=== PATIENT | female | born 1940 | race Caucasian/White ===

== ENCOUNTER 2018-11-14 12:24 | Emergency (ER) | payer MEDICARE ==
[2018-11-14 12:36] VITALS: BP 170/93; PULSE 86; RESP 16; TEMP 97.9
[2018-11-14] MEDS ORDERED: LORazepam 2 MG/ML INJ IV STA ×2 (13:21)
--- NOTE | 2018-11-14 13:43 | ED ---
General Adult HPI - General Chief complaint: Headache Stated complaint: HEADACHE RT WORSHIP Time Seen by Provider: 11/14/18 12:35 Source: patient, RN notes reviewed Mode of arrival: wheelchair Limitations: no limitations - History of Present Illness Initial comments: This is an 78-year-old female presents to the emergency department stating that she's had multiple vascular headaches in the past. Patient states today she had a right-sided headache that last between one to 2 seconds and then there would be a period of about 2 minutes that she didn't have a headache and then the 2 second pain would return she states is when on for a couple of hours. Patient states she had no numbness no weakness she denies any slurred speech or visual problems. Patient states currently she has got no headache and states that the headache has been gone for 30 minutes. Patient denies any nausea vomiting per patient denies any fever chills. Patient denies any tenderness to the scalp. Patient denies any chest pain difficulty breathing shortest breath. Patient denies any recent nausea vomiting diarrhea. - Related Data Allergies Allergy/AdvReac Type Severity Reaction Status Date / Time No Known Allergies Allergy Verified 11/14/18 12:36 Review of Systems ROS Statement: Those systems with pertinent positive or pertinent negative responses have been documented in the HPI. ROS Other: All systems not noted in ROS Statement are negative. Past Medical History Additional Past Medical History / Comment(s): Neuropathy History of Any Multi-Drug Resistant Organisms: None Reported Past Surgical History: Joint Replacement Past Psychological History: No Psychological Hx Reported Smoking Status: Never smoker Past Alcohol Use History: Daily Past Drug Use History: None Reported General Exam - General Exam Comments Initial Comments: GENERAL: Patient is well-developed and well-nourished. Patient is nontoxic and well- hydrated and is in no acute distress. ENT: Neck is soft and supple. No temporal artery tenderness EYES: The sclera were anicteric and conjunctiva were pink and moist. Extraocular movements were intact and pupils were equal round and reactive to light. Eyelids were unremarkable. SKIN: Skin is clear with no lesions or rashes and otherwise unremarkable. NEUROLOGIC: Patient is alert and oriented x3. Cranial nerves II through XII are grossly intact. Motor and sensory are also intact. Normal speech, volume and content. Symmetrical smile. Cerebellar exam grossly intact. MUSCULOSKELETAL: Normal extremities with adequate strength and full range of motion. PSYCHIATRIC: Normal psychiatric evaluation. Limitations: no limitations Course Vital Signs 11/14/18 12:31 Temperature 97.9 F Pulse Rate 86 Respiratory 16 Rate Blood Pressure 170/93 O2 Sat by Pulse 97 Oximetry Disposition Clinical Impression: Headache Disposition: HOME SELF-CARE Condition: Good Instructions (If sedation given, give patient instructions): Acute Headache (ED) Is patient prescribed a controlled substance at d/c from ED?: No Referrals: Yayo Hewitt MD [Primary Care Provider] - 1-2 days Time of Disposition: 13:43
== END 2018-11-14 13:57 | disposition home or self-care (01) ==
LOC: EC 12:24
DX: R51 Headache (principal); Z96.698 Presence of other orthopedic joint implants
CPT/HCPCS: 99283

== ENCOUNTER 2019-02-07 12:33 | Emergency (ER) | payer MEDICARE ==
[2019-02-07 13:00] VITALS: RESP 18
--- NOTE | 2019-02-07 13:24 | ED ---
General Adult HPI - General Chief complaint: Recheck/Abnormal Lab/Rx Stated complaint: Not feeling good Time Seen by Provider: 02/07/19 13:05 Source: patient, RN notes reviewed, old records reviewed Mode of arrival: wheelchair Limitations: no limitations - History of Present Illness Initial comments: 78-year-old female presents for evaluation of right neck pain. Pain began while patient was riding her stationary bike. She states she typically rides despite several days. Week without any chest pain or neck pain. She has no history of CAD. Pain was not associated with any injury or trauma. She states this was approximately 2 minutes after initiating exercise. Pain has resolved with rest. This was right neck pain with no central chest pain. No vomiting or diaphoresis. - Related Data Home Medications Medication Instructions Recorded Confirmed Aspirin EC [Ecotrin Low Dose] 81 mg PO DAILY 11/14/18 11/14/18 Hydrochlorothiazide [Hydrodiuril] 25 mg PO DAILY 11/14/18 11/14/18 Meclizine [Antivert] 25 mg PO TID PRN 11/14/18 11/14/18 Mometasone Furoate [Asmanex] 1 - 2 puff INHALATION RT-BID 11/14/18 11/14/18 Pramipexole [Mirapex] 0.25 mg PO HS 11/14/18 11/14/18 Tiotropium 18 Mcg/Puff [Spiriva] 1 puff INHALATION RT-DAILY 11/14/18 11/14/18 Vitamin B Complex 1 cap PO DAILY 11/14/18 11/14/18 Allergies Allergy/AdvReac Type Severity Reaction Status Date / Time No Known Allergies Allergy Verified 02/07/19 12:54 Review of Systems ROS Statement: Those systems with pertinent positive or pertinent negative responses have been documented in the HPI. ROS Other: All systems not noted in ROS Statement are negative. Past Medical History Past Medical History: Hypertension Additional Past Medical History / Comment(s): Neuropathy History of Any Multi-Drug Resistant Organisms: None Reported Past Surgical History: Joint Replacement Past Psychological History: Anxiety Smoking Status: Never smoker Past Alcohol Use History: Daily Past Drug Use History: None Reported General Exam Limitations: no limitations General appearance: alert, in no apparent distress Head exam: Present: atraumatic, normocephalic Eye exam: Present: normal appearance, PERRL ENT exam: Present: normal exam Neck exam: Present: normal inspection, other (No external signs of trauma no signs of infection no muscle spasm or tenderness on exam). Absent: tenderness, meningismus Respiratory exam: Present: normal lung sounds bilaterally. Absent: respiratory distress, wheezes Cardiovascular Exam: Present: regular rate, normal rhythm GI/Abdominal exam: Present: soft. Absent: distended, tenderness, guarding Extremities exam: Present: normal inspection, normal capillary refill. Absent: pedal edema, calf tenderness Neurological exam: Present: alert, oriented X3, CN II-XII intact. Absent: motor sensory deficit Psychiatric exam: Present: normal affect, normal mood Skin exam: Present: warm, dry, intact. Absent: cyanosis, diaphoretic Course Vital Signs 02/07/19 12:55 Temperature 97.5 F L Pulse Rate 77 Respiratory 18 Rate Blood Pressure 154/80 O2 Sat by Pulse 97 Oximetry EKG Findings - EKG Comments: EKG Findings:: EKG: Sinus rhythm with PVC, LVH, no ST segment depression in the lateral precordial leads, rate of 80, AK interval 150, QRS duration 88, QTC 442, no ST segment elevation no old for comparison. Medical Decision Making - Medical Decision Making 78-year-old female with exertional right neck pain. No specific injury. Pain also resolved time my evaluation. I was concerned this may be an anginal equivalent in this 78-year-old female. This was with exertion while riding a stationary bike. EKG has some changes in the precordial leads however there is no old for comparison. There is no ST segment elevation. Laboratory testing reveals normal CBC, normal CMP, negative initial troponin. Did offer observation for this patient to rule out acute coronary syndrome. Patient prefers outpatient management. She was willing to receive a second troponin emergency department which was also negative at 3 hours. She will follow-up with her primary care physician. She will return with worsening or changing symptoms. - Lab Data Result diagrams: 02/07/19 13:23 02/07/19 13:23 Lab Results 02/07/19 02/07/19 02/07/19 Range/Units 13:23 13:23 13:23 WBC 4.3 (3.8-10.6) k/uL RBC 3.83 (3.80-5.40) m/uL Hgb 12.5 (11.4-16.0) gm/dL Hct 36.2 (34.0-46.0) % MCV 94.6 (80.0-100.0) fL MCH 32.7 (25.0-35.0) pg MCHC 34.6 (31.0-37.0) g/dL RDW 11.7 (11.5-15.5) % Plt Count 245 (150-450) k/uL Neutrophils % 57 % Lymphocytes % 29 % Monocytes % 7 % Eosinophils % 3 % Basophils % 2 % Neutrophils # 2.4 (1.3-7.7) k/uL Lymphocytes # 1.3 (1.0-4.8) k/uL Monocytes # 0.3 (0-1.0) k/uL Eosinophils # 0.1 (0-0.7) k/uL Basophils # 0.1 (0-0.2) k/uL PT 10.5 (9.0-12.0) sec INR 1.0 (<1.2) APTT 24.3 (22.0-30.0) sec Sodium 140 (137-145) mmol/L Potassium 3.4 L (3.5-5.1) mmol/L Chloride 101 (98-107) mmol/L Carbon Dioxide 29 (22-30) mmol/L Anion Gap 10 mmol/L BUN 17 (7-17) mg/dL Creatinine 0.89 (0.52-1.04) mg/dL Est GFR (CKD-EPI)AfAm 71 (>60 ml/min/1.73 sqM) Est GFR (CKD-EPI)NonAf 61 (>60 ml/min/1.73 sqM) Glucose 51 L (74-99) mg/dL POC Glucose (mg/dL) (75-99) mg/dL POC Glu Scouring Pads Supervisor ID Calcium 9.9 (8.4-10.2) mg/dL Magnesium 1.9 (1.6-2.3) mg/dL Total Bilirubin 0.3 (0.2-1.3) mg/dL AST 25 (14-36) U/L ALT 20 (9-52) U/L Alkaline Phosphatase 64 (38-126) U/L Troponin I (0.000-0.034) ng/mL Total Protein 7.4 (6.3-8.2) g/dL Albumin 4.6 (3.5-5.0) g/dL 02/07/19 02/07/19 02/07/19 Range/Units 13:23 14:14 14:44 WBC (3.8-10.6) k/uL RBC (3.80-5.40) m/uL Hgb (11.4-16.0) gm/dL Hct (34.0-46.0) % MCV (80.0-100.0) fL MCH (25.0-35.0) pg MCHC (31.0-37.0) g/dL RDW (11.5-15.5) % Plt Count (150-450) k/uL Neutrophils % % Lymphocytes % % Monocytes % % Eosinophils % % Basophils % % Neutrophils # (1.3-7.7) k/uL Lymphocytes # (1.0-4.8) k/uL Monocytes # (0-1.0) k/uL Eosinophils # (0-0.7) k/uL Basophils # (0-0.2) k/uL PT (9.0-12.0) sec INR (<1.2) APTT (22.0-30.0) sec Sodium (137-145) mmol/L Potassium (3.5-5.1) mmol/L Chloride (98-107) mmol/L Carbon Dioxide (22-30) mmol/L Anion Gap mmol/L BUN (7-17) mg/dL Creatinine (0.52-1.04) mg/dL Est GFR (CKD-EPI)AfAm (>60 ml/min/1.73 sqM) Est GFR (CKD-EPI)NonAf (>60 ml/min/1.73 sqM) Glucose (74-99) mg/dL POC Glucose (mg/dL) 77 86 (75-99) mg/dL POC Glu Scouring Pads Supervisor Caroline Rodriguez Nicole Calcium (8.4-10.2) mg/dL Magnesium (1.6-2.3) mg/dL Total Bilirubin (0.2-1.3) mg/dL AST (14-36) U/L ALT (9-52) U/L Alkaline Phosphatase (38-126) U/L Troponin I <0.012 (0.000-0.034) ng/mL Total Protein (6.3-8.2) g/dL Albumin (3.5-5.0) g/dL Disposition Clinical Impression: Cervical strain, acute Disposition: HOME SELF-CARE Condition: Good Instructions (If sedation given, give patient instructions): Cervical Strain (ED) Is patient prescribed a controlled substance at d/c from ED?: No Referrals: Tramaine Merritt MD [Primary Care Provider] - 1-2 days Time of Disposition: 16:49
[2019-02-07 13:34] LABS: Basophils # (A) 0.1 k/uL (0-0.2); Basophils % (A) 2 %; Eosinophils # (A) 0.1 k/uL (0-0.7); Eosinophils % (A) 3 %; HCT 36.2 % (34.0-46.0); HGB 12.5 gm/dL (11.4-16.0); Lymphocytes # (A) 1.3 k/uL (1.0-4.8); Lymphocytes % (A) 29 %; MCH 32.7 pg (25.0-35.0); MCHC 34.6 g/dL (31.0-37.0); MCV 94.6 fL (80.0-100.0); Mean Platelet Volume 6.5; Monocytes # (A) 0.3 k/uL (0-1.0); Monocytes % (A) 7 %; Neutrophils # (A) 2.4 k/uL (1.3-7.7); Neutrophils % (A) 57 %; Platelet Count 245 k/uL (150-450); RBC 3.83 m/uL (3.80-5.40); RDW 11.7 % (11.5-15.5); WBC 4.3 k/uL (3.8-10.6)
[2019-02-07 13:44] LABS: Partial Thromboplastin Time 24.3 sec (22.0-30.0); Prothrombin Time 10.5 sec (9.0-12.0)
[2019-02-07 13:47] LABS: Albumin 4.6 g/dL (3.5-5.0); Calcium 9.9 mg/dL (8.4-10.2); Magnesium 1.9 mg/dL (1.6-2.3); Potassium 3.4 mmol/L (3.5-5.1); Total Bilirubin 0.3 mg/dL (0.2-1.3); Total Protein 7.4 g/dL (6.3-8.2)
--- NOTE | 2019-02-07 13:56 | XR ---
EXAMINATION TYPE: XR chest 2V DATE OF EXAM: 02/07/2019 COMPARISON: None INDICATION: Chest pain TECHNIQUE: Frontal and lateral views of the chest are obtained. FINDINGS: The heart size is normal. The pulmonary vasculature is normal. The lungs are clear. IMPRESSION: 1. No acute pulmonary process.
[2019-02-07 14:15] LABS: Glucose,Whole Blood 77 mg/dL (75-99)
[2019-02-07 14:45] LABS: Glucose,Whole Blood 86 mg/dL (75-99)
[2019-02-07 17:13] VITALS: BP 126/74; PULSE 71; TEMP 97.1
== END 2019-02-07 17:05 | disposition home or self-care (01) ==
LOC: EC 12:33
DX: S16.1XXA Strain of muscle, fascia and tendon at neck level, initial encounter (principal); F41.9 Anxiety disorder, unspecified; I10 Essential (primary) hypertension; G62.9 Polyneuropathy, unspecified; Z79.82 Long term (current) use of aspirin; Z79.899 Other long term (current) drug therapy; X58.XXXA Exposure to other specified factors, initial encounter
CPT/HCPCS: 36415; 71046; 80053; 83735; 84484; 85025; 85610; 85730; 93005; 99284

== ENCOUNTER → 2021-06-07 | Outpatient (CLI) | payer MEDICARE ==
--- NOTE | 2021-06-07 12:28 | XR ---
Cervical spine Limited HISTORY: Neck pain 3 views the cervical spine, correlation chest x-ray 02/07/2019 There is multilevel facet arthropathy. Probable carotid artery calcifications are noted incidentally. There is a spinal curvature. Apical pleural thickening is noted on the left. There is multilevel spo ndylosis. Minimal grade 1 anterolisthesis C3-4. Retrolisthesis grade 1 C5-6. There is loss of disc he ight at intervertebral levels C3-4, C4-5, C5-6 and C6-7. Cervical vertebral bodies show preserved hei ght. Bone mineralization is maintained. IMPRESSION: Degenerative disc disease, facet arthropathy and additional findings above.
== END | disposition home or self-care (01) ==
LOC: RADXRMAIN 09:56
PROVIDERS: ATTEND Internal Medicine
DX: M50.323 Other cervical disc degeneration at C6-C7 level (principal); M47.812 Spondylosis without myelopathy or radiculopathy, cervical region; M43.8X2 Other specified deforming dorsopathies, cervical region
CPT/HCPCS: 72040

== ENCOUNTER → 2022-11-25 | Outpatient (CLI) | payer MEDICARE ==
--- NOTE | 2022-11-26 07:32 | CA ---
Transthoracic Echo Report Name: Dayna Gannon Age: 82 Gender: F : 1940 Exam Date: 11/25/2022 13:37 Exam Location: [facility] Ht (in): 63 Wt (lb): 132 Ordering Physician: Rob Chang MD Attending/Referring Phys: Sql Programmer Analyst Mckenna Farfan RDCS Procedure CPT: Indications: M79.89 swelling Cardiac Hx: Technical Quality: Good Contrast 1: Total Dose (mL): Contrast 2: Total Dose (mL): MEASUREMENTS (Male / Female) Normal Values 2D ECHO LV Diastolic Diameter PLAX 4.3 cm 4.2 - 5.9 / 3.9 - 5.3 cm LV Systolic Diameter PLAX 3.0 cm IVS Diastolic Thickness 1.3 cm 0.6 - 1.0 / 0.6 - 0.9 cm LVPW Diastolic Thickness 1.2 cm 0.6 - 1.0 / 0.6 - 0.9 cm LV Relative Wall Thickness 0.6 RV Internal Dim ED PLAX 3.1 cm LA Systolic Diameter LX 3.5 cm 3.0 - 4.0 / 2.7 - 3.8 cm LV Diastolic Volume MOD BP 53.5 cm??? 67 - 155 / 56 - 104 cm??? LV Systolic Volume MOD BP 22.5 cm??? 22 - 58 / 19 - 49 cm??? LV Ejection Fraction MOD BP 58.0 % >= 55 % LV Cardiac Index MOD BP 1268.8 cm???/min???m??? LV Diastolic Volume MOD 4C 54.6 cm??? LV Systolic Volume MOD 4C 28.0 cm??? LV Ejection Fraction MOD 4C 48.7 % LV Cardiac Index MOD 4C 1085.7 cm???/min???m??? LV Diastolic Length 4C 7.0 cm LV Systolic Length 4C 6.2 cm LV Diastolic Volume MOD 2C 46.9 cm??? LV Systolic Volume MOD 2C 10.4 cm??? LV Ejection Fraction MOD 2C 77.9 % LV Cardiac Index MOD 2C 1492.5 cm???/min???m??? LV Diastolic Length 2C 6.2 cm LV Systolic Length 2C 3.3 cm LA Volume 50.9 cm??? 18 - 58 / 22 - 52 cm??? M-MODE Aortic Root Diameter MM 3.1 cm MV E Point Septal Separation 0.8 cm AV Cusp Separation MM 1.8 cm DOPPLER AV Peak Velocity 123.1 cm/s AV Peak Gradient 6.1 mmHg MV Area PHT 3.0 cm??? Mitral E Point Velocity 73.1 cm/s Mitral A Point Velocity 82.0 cm/s Mitral E to A Ratio 0.9 MV Deceleration Time 251.5 ms MV E' Velocity 5.3 cm/s Mitral E to MV E' Ratio 13.8 TR Peak Velocity 221.7 cm/s TR Peak Gradient 19.7 mmHg Right Ventricular Systolic Press 23.4 mmHg FINDINGS Left Ventricle Left ventricular ejection fraction is estimated at 55-60 %. Left ventricular cavity size normal. Mildly increased septal wall thickness. Mildly increased posterior wall thickness. Right Ventricle Normal right ventricular size and function. Right ventricular systolic pressure within normal limits. Right Atrium Normal right atrial size. Left Atrium Normal left atrial size. Mitral Valve Structurally normal mitral valve. Mild mitral regurgitation. Aortic Valve Trileaflet aortic valve. No aortic valve stenosis or regurgitation. Tricuspid Valve Structurally normal tricuspid valve. Mild tricuspid regurgitation. Pulmonic Valve Structurally normal pulmonic valve. No pulmonic regurgitation. Pericardium No pericardial effusion. Aorta Normal size aortic root and proximal ascending aorta. CONCLUSIONS Normal LV systolic function. Mild left ventricular hypertrophy Mild mitral regurgitation No evidence of pericardial effusion Normal pulmonary artery systolic pressure Previewed by: Dr. Tye Madera MD (Electronically Signed) Final Date: 26 November 2022 07:31
== END | disposition home or self-care (01) ==
LOC: RADECHMAIN 13:21
PROVIDERS: ATTEND Internal Medicine
DX: I34.0 Nonrheumatic mitral (valve) insufficiency (principal); M79.89 Other specified soft tissue disorders
CPT/HCPCS: 93306

== ENCOUNTER → 2023-12-26 | Outpatient (CLI) | payer MEDICARE ==
[2023-12-26 15:31] LABS: ALT 17 U/L (8-44); AST 17 U/L (13-35); Albumin 4.5 g/dL (3.8-4.9); Albumin/Globulin Ratio 2.05 Ratio (1.60-3.17); Alkaline Phosphatase 78 U/L (41-126); BUN/Creat Ratio 22.78 Ratio (12.00-20.00); Blood Urea Nitrogen 20.5 mg/dL (9.0-27.0); Calcium 9.6 mg/dL (8.7-10.3); Carbon Dioxide 22.3 mmol/L (21.6-31.8); Chloride 100 mmol/L (96-109); Globulin 2.2 g/dL (1.6-3.3); Glucose 96 mg/dL (70-110); Potassium 4.6 mmol/L (3.5-5.5); Sodium 134 mmol/L (135-145); Total Bilirubin 0.5 mg/dL (0.3-1.2); Total Protein 6.7 g/dL (6.2-8.2)
[2023-12-26 15:37] LABS: Prealbumin 28.1 mg/dL (18.0-42.0)
[2023-12-26 17:28] LABS: Basophils # (A) 0.05 X 10*3/uL (0.00-0.10); Basophils % (A) 0.6 %; Eosinophils # (A) 0.02 X 10*3/uL (0.04-0.35); Eosinophils % (A) 0.3 %; HCT 33.7 % (37.2-46.3); HGB 10.9 g/dL (12.0-15.0); Lymphocytes # (A) 1.44 X 10*3/uL (0.90-5.00); Lymphocytes % (A) 18.6 %; MCH 31.4 pg (27.0-32.0); MCHC 32.3 g/dL (32.0-37.0); MCV 97.1 FL (80.0-97.0); Mean Platelet Volume 9.2 FL (9.5-12.2); Monocytes # (A) 0.69 X 10*3/uL (0.20-1.00); Monocytes % (A) 8.9 %; NRBC Per 100 WBC 0 X 10*3/uL (0.00-0.01); Neutrophils # (A) 5.49 X 10*3/uL (1.80-7.70); Platelet Count 304 X 10*3/uL (140-440); RBC 3.47 X 10*6/uL (4.10-5.20); WBC 7.74 X 10*3/uL (4.50-10.00)
== END | disposition home or self-care (01) ==
LOC: LABWHC1 09:22
PROVIDERS: ATTEND Internal Medicine
DX: Z00.00 Encounter for general adult medical examination without abnormal findings
CPT/HCPCS: 36415; 80053; 84134; 85025

== ENCOUNTER 2024-01-09 11:06 | Day surgery (SDC) | payer MEDICARE ==
[2024-01-09] MEDS: IV FLUID CONTINUATION 1,000 ML IV ONE (11:43)
[2024-01-09 11:55] VITALS: RESP 16; TEMP 97.2
[2024-01-09] MEDS: LACTATED RINGERS 1,000 ML IV SCH (12:00)
[2024-01-09] MEDS ORDERED: LIDOCAINE 1% INJ 10MG/ML (20 ML MDV) ONE (12:35)
[2024-01-09] MEDS ORDERED: PROPOFOL 10 MG/ML 20 ML VIAL IV ONE (12:35)
--- NOTE | 2024-01-09 12:55 | P.PCN ---
Date of Procedure: 01/09/24 Procedure(s) Performed: BRIEF HISTORY: Patient is a 83-year-old, pleasant, white female skilled for an upper endoscopy as a part of evaluation of epigastric pain and intermittent dysphagia to solids. An episode of severe epigastric pain about 2 months ago that lasted for a week and then resolved. Since then has been having intermittent dysphagia to solids. Also complains of chronic diarrhea with 2-3 loose bowel movements daily. PROCEDURE PERFORMED: Esophagogastroduodenoscopy with biopsy. PREOPERATIVE DIAGNOSIS: Epigastric pain/intermittent dysphagia to solids. IV sedation per anesthesia. PROCEDURE: After informed consent was obtained, the patient was brought into the endoscopy unit. IV sedation was administered by Anesthesia under continuous monitoring. Initially the Olympus GIF-140 video endoscope was inserted into the mouth. Esophagus intubated without any difficulty. It was gradually advanced into the stomach and duodenum and carefully examined. The bulb and the second part of the duodenum appeared normal. Apices were done from the duodenum to rule out celiac disease. The scope at this time was withdrawn to the stomach, adequately insufflated with air, and upon careful examination, mucosa of the antrum, and mild gastritis and biopsies were done from this area. Mucosa of the body, cardia and the fundus appeared normal. The scope was then withdrawn into the esophagus. Hiatal hernia noted. The GE junction was located at 39 cm from the incisors. The esophagus appeared normal. There were no erosions or ulcerations seen, biopsies were done from the distal esophagus and the patient tolerated the procedure well. IMPRESSION: 1. Small hiatal hernia. 2. No evidence of esophagitis or esophageal stricture 3. Mild antral gastritis. RECOMMENDATIONS: The findings of this examination were discussed with the patient as well as her family. She was advised to follow-up with the biopsy results. Advised to use [id number] Pepcid as needed if she has rectal symptoms..
[2024-01-09 13:13] VITALS: BP 138/75; PULSE 65
== END 2024-01-09 14:03 | disposition home or self-care (01) ==
LOC: ORWHC2ENDO 11:06
PROVIDERS: ATTEND Internal Medicine Gastroenterology
CPT/HCPCS: 43239; 88305

== ENCOUNTER → 2024-01-23 | Outpatient (CLI) | payer MEDICARE ==
[2024-01-23 15:06] LABS: Basophils % (A) 1 %; Eosinophils # (A) 0.1 k/uL (0-0.7); Eosinophils % (A) 1 %; HCT 34.4 % (34.0-46.0); HGB 11.1 gm/dL (11.4-16.0); Lymphocytes # (A) 0.9 k/uL (1.0-4.8); Lymphocytes % (A) 17 %; MCH 31.5 pg (25.0-35.0); MCHC 32.2 g/dL (31.0-37.0); MCV 97.9 fL (80.0-100.0); Mean Platelet Volume 6.8; Monocytes # (A) 0.3 k/uL (0-1.0); Monocytes % (A) 6 %; Neutrophils # (A) 3.8 k/uL (1.3-7.7); Neutrophils % (A) 72 %; Platelet Count 298 k/uL (150-450); RBC 3.52 m/uL (3.80-5.40); RDW 12.8 % (11.5-15.5); WBC 5.4 k/uL (3.8-10.6)
[2024-01-23 16:05] LABS: ALT 24 U/L (4-34); AST 24 U/L (14-36); African American GFR (CKD) 67 (>60 ml/min/1.73 sqM); Albumin 4.6 g/dL (3.5-5.0); Albumin/Globulin Ratio 1.8; Alkaline Phosphatase 77 U/L (38-126); Anion Gap 8 mmol/L; Blood Urea Nitrogen 23 mg/dL (7-17); Calcium 9.6 mg/dL (8.4-10.2); Carbon Dioxide 25 mmol/L (22-30); Chloride 102 mmol/L (98-107); Globulin 2.6 g/dL; Glucose 91 mg/dL (74-99); Non-African American GFR(CKD) 58 (>60 ml/min/1.73 sqM); Potassium 4.3 mmol/L (3.5-5.1); Sodium 135 mmol/L (137-145); Total Bilirubin 0.6 mg/dL (0.2-1.3); Total Protein 7.2 g/dL (6.3-8.2)
[2024-01-23 18:57] LABS: Hepatitis C IgG Antibody Nonreactive (Nonreactive)
[2024-01-23 19:06] LABS: % Iron Saturation 22.42 (12.00-45.00); Iron 87 UG/DL (50-170); LDL Cholesterol,Calculated 80.4 mg/dL (0.0-131.0); Magnesium 2.2 mg/dL (1.5-2.4); Total Iron Binding Capacity 388 UG/DL (228-460); VLDL Calculation 12.64 mg/dL (5.00-40.00)
[2024-01-23 20:27] LABS: HIV 2 AB Non-Reactive (Non-Reactive); HIV AB P24 Non-Reactive (Non-Reactive); HIV P24 AG Non-Reactive (Non-Reactive)
--- NOTE | 2024-01-25 08:51 | CT ---
EXAMINATION TYPE: CT ChestAbdPelvis w con DATE OF EXAM: 01/23/2024 COMPARISON: Abdomen pelvis 12/03/2022 HISTORY: 83-year-old female R6 3.4 weight loss TECHNIQUE: Contiguous axial scanning of the chest, abdomen, and pelvis performed with IV Contrast, pa tient injected with 100 mL of Isovue 370. Delayed images through the kidneys were obtained. Coronal/s agittal reconstructions performed. CT DLP: 567 mGycm Automated exposure control for dose reduction was used. FINDINGS: Chest: The heart is upper limits of normal in size with trace anterior basilar pericardial fluid. Mild proxi mal LAD coronary calcifications are present. Borderline ectasia ascending aorta 3.5 cm. Minimal atherosclerotic arch calcifications with convexity towards vessel branching anatomy. No thoracic lymphadenopathy by CT size criteria. Mild emphysematous change. Some nodular subpleural atelectasis posterior right lung. Minimal strandy scarring or atelectasis scattered throughout. Biapical pleural-parenchymal scarring. No consolidation or pleural effusion. ABDOMEN: There is a small hiatal hernia. No focal liver lesion or biliary ductal dilatation. Portal venous system is patent. Gallbladder, adrenal glands, spleen, and atrophic pancreas show no gross abnormality. Kidneys show bilateral extra renal pelves. A few benign bilateral renal cortical cysts measuring up to 1.7 cm on the right and 1.2 cm on the lef t. No dilated small bowel, free fluid, or free air. No mesenteric or retroperitoneal lymphadenopathy. At least moderate atherosclerotic narrowing at the origin of both celiac axis and SMA. Either calcifi cation or a stent within the proximal left renal artery. Moderate atherosclerotic calcification abdom inal aorta. There is moderate wording. Left-sided colonic diverticulosis, greatest in the sigmoid colon. No peric olonic inflammatory change. Redundant sigmoid colon. Pelvis: Prominent streak and beam hardening artifact relating to the patient's bilateral total hip arthroplas ties limits detailed assessment of the pelvis. Distention of the left gonadal vein with left periuter ine varices. Uterus is anteverted. Small bilateral ovaries. No abnormal fluid collection in the pelvi s or pelvic lymphadenopathy clearly identified. Bones: Accentuated lumbar lordosis. Grade 2 anterolisthesis L4-L5 secondary to advanced hypertrophic facet arthropathy. Severe degenerative disc disease here at this level. At least moderate focal spinal tamy l stenosis here. Trace grade 1 anterolisthesis L3-L4. Spondylotic changes cervical spine. Sacral Tarl ov cysts measuring up to 2.9 cm on the right. IMPRESSION: 1. COPD WITH MINIMAL EMPHYSEMATOUS CHANGE. MILD PROXIMAL LAD CORONARY ARTERY CALCIFICATIONS. 2. SMALL HIATAL HERNIA, MODERATE STOOL BURDEN, AND LEFT-SIDED COLONIC DIVERTICULOSIS, GREATEST IN THE SIGMOID COLON. 3. AT LEAST MODERATE ATHEROSCLEROTIC NARROWING AT THE ORIGIN OF THE CELIAC AXIS AND SMA. 4. DISTENTION OF THE LEFT GONADAL VEIN WITH SMALL LEFT PERIUTERINE VARICES. FINDINGS NONSPECIFIC BUT MAY BE SEEN WITH PELVIC CONGESTION SYNDROME. 5. DEGENERATIVE CHANGES LUMBAR SPINE MENTIONED ABOVE. [facility], , 01/25/2024 8:49 AM
[2024-01-26 10:38] LABS: Protein, Total 7.2 g/dL (6.2-8.2)
[2024-01-29 07:36] LABS: Albumin 4.33 g/dL (3.80-4.90); Gamma Globulin 0.83 g/dL (0.70-1.50)
== END | disposition home or self-care (01) ==
LOC: RADCTMAIN 13:58
PROVIDERS: ATTEND Internal Medicine
CPT/HCPCS: 36415; 71260; 74177; 80053; 80061; 82533; 82607; 82728; 82746; 83540; 83550; 83735; 84165; 84443; 85025; 86803; 87390

== ENCOUNTER → 2024-06-25 | Outpatient (CLI) | payer MEDICARE ==
--- NOTE | 2024-06-25 10:59 | US ---
EXAMINATION TYPE: US abdomen complete DATE OF EXAM: 06/25/2024 COMPARISON: Multiple, most recent 01/23/2024 CLINICAL INDICATION: Female, 84 years old with history of R74.02 ELEVATION OF LEVELS OF LACTIC ACID D EHYDROG; Patient denies any signs or symptoms. Hx HTN TECHNIQUE: Grayscale and color Doppler imaging of the abdomen was performed. FINDINGS: EXAM MEASUREMENTS: Liver Length: 11.4 cm Gallbladder Wall: 0.2 cm CBD: 0.7 cm, color Doppler imaging was utilized to isolate the common bile duct for measurement. Spleen: 8.5 x 2.7 x 2.8 cm Right Kidney: 10.7 x 4.5 x 3.8 cm Left Kidney: 10.9 x 4.3 x 4.8 cm GROUP ACCOUNT DIRECTOR NOTES: Pancreas: wnl Liver: ? Normal liver tissue vs liver lesion = 3.2 x 2.6 x 2.8 cm Gallbladder: wnl Evidence for sonographic Ortega's sign: No CBD: wnl Spleen: wnl Right Kidney: wnl, No hydronephrosis, calculi or masses seen Simple cyst redemonstrated Left Kidney: wnl, No hydronephrosis, calculi or masses seen Simple cyst redemonstrated Upper IVC: wnl Abd Aorta: wnl There is a questionable right hepatic lobe subtle hypoechoic lesion measuring up to 3.2 cm. The intra hepatic portion of the IVC and proximal abdominal aorta are within normal limits. There is no eviden ce of cholelithiasis. Common bile duct is unremarkable. The visualized portions of the pancreas are homogenous. The spleen is unremarkable. Kidneys are symmetric and free of hydronephrosis. Bilatera l simple renal cysts redemonstrated. IMPRESSION: 1. No ultrasound evidence for acute process. 2. Questionable subtle right hepatic lobe lesion versus normal hepatic parenchyma. Consider further e valuation with MR abdomen liver mass protocol. 3. Bilateral simple renal cysts. No follow-up. [facility], , 06/25/2024 10:57 AM
== END | disposition home or self-care (01) ==
LOC: RADUSWWP 08:53
PROVIDERS: ATTEND Internal Medicine
DX: N28.1 Cyst of kidney, acquired (principal); R74.01 Elevation of levels of liver transaminase levels
CPT/HCPCS: 76700